=== PATIENT | female | born 1955 | race Caucasian/White ===

== ENCOUNTER → 2017-03-17 | Outpatient (CLI) | payer OTHER ==
--- NOTE | 2017-03-19 17:01 | CR ---
EXAM DATE: 03/17/17 PATIENT'S AGE: 61 Patient: MAGUE GUERRIER Facility: [place], [place] Site . Site : 1955 Study: XRay Chest [id number]/28/2017 2:43:23 PM Ordering Physician: Scotty Bergman Final Report: INDICATION: Asthma. TECHNIQUE: Chest 2 views. COMPARISON: None FINDINGS: Cardiovascular and mediastinum: Heart size and vasculature are normal in caliber and appearance. Mediastinum is within normal limits. Lungs and pleural spaces: No acute airspace disease. No sign of infiltrate or mass. Minimal atelectasis at the left lateral costophrenic sulcus. No sign of pleural effusion. No pneumothorax. Bones and soft tissues: Chronic appearing right posterior rib fractures. IMPRESSION: No acute airspace disease. Dictated by Gavin Auguste MD @ Mar 17 2017 2:55PM (Electronic Signature) Report Signed by Proxy. RADHA
== END ==
LOC: MW.CHFP 14:19
PROVIDERS: ATTEND Family Medicine
DX: J45.909 Unspecified asthma, uncomplicated (principal)
CPT/HCPCS: 71020; 71020-26